=== PATIENT | female | born 1965 ===

== ENCOUNTER 2017-08-18 02:47 | Emergency (ER) | payer SELFPAY ==
[~2017-08-18] VITALS: Ht 162.6 cm; Wt 66.0 kg
[2017-08-18 02:48] VITALS: BP 127/81; PULSE 84; RESP 16; TEMP 97.8; O2SAT 96
[2017-08-18] MEDS ORDERED: ROBA500T PO (03:02)
--- NOTE | 2017-08-18 03:21 | PD ---
HPI Chief Complaint: Pain: Acute or Chronic Time Seen by Provider: 03:05 Travel History International Travel<30 days: No Contact w/Intl Traveler<30days: No Traveled to known affect area: No History of Present Illness HPI Patient is a 52-year-old female that presented to the emergency room evaluation of back pain that has been ongoing for 3 weeks. Patient states that she picked up a heavy purse with her right arm and felt something pop. She went to her primary doctor who prescribed ibuprofen and Robaxin and performed an x-ray. Patient states that the pain is not going away and requested a CAT scan. She denies any shortness of breath, chest pain, fever, chills. She reports the pain feels like it's cramping and aching and states is a 9 out of 10 which is what prompted her to come to the emergency department in the middle of the night. PFSH Past Medical History Medical History: Denies Significant Hx ?: Not LMP: MENOPAUSE Past Surgical History Appendectomy: Yes Other Surgery: Yes (BREAST AUG) Social History Alcohol Use: Yes (RARE) Tobacco Use: No Substance Use: No Allergies-Medications (Allergen,Severity, Reaction): Coded Allergies: No Known Allergies (Unverified , 08/18/17) Reported Meds & Prescriptions Reported Meds & Active Scripts Active Reported Robaxin (Methocarbamol) 500 Mg Tab 500 Mg PO TID Review of Systems Except as stated in HPI: all other systems reviewed are Neg Musculoskeletal: Positive: Myalgias, Cramping, Pain Physical Exam Narrative GENERAL: Well-developed, well-nourished, alert female. Resting comfortably in no acute distress. SKIN: Warm and dry. HEAD: Normocephalic. EYES: No scleral icterus. No injection or drainage. NECK: Supple, trachea midline. No JVD or lymphadenopathy. CARDIOVASCULAR: Regular rate and rhythm without murmurs, gallops, or rubs. RESPIRATORY: Breath sounds equal bilaterally. No accessory muscle use. GASTROINTESTINAL: Abdomen soft, non-tender, nondistended. MUSCULOSKELETAL: No cyanosis, or edema. Tenderness to palpation in the paraspinal musculature in the thoracic region on the left side. BACK: Nontender without obvious deformity. No CVA tenderness. Data Data Last Documented VS Vital Signs Date Time Temp Pulse Resp B/P (MAP) Pulse Ox O2 Delivery O2 Flow Rate FiO2 08/18/17 02:48 97.8 84 16 127/81 (96) 96 Room Air MDM Medical Decision Making Medical Screen Exam Complete: Yes Emergency Medical Condition: No Interpretation(s) Vital Signs Date Time Temp Pulse Resp B/P (MAP) Pulse Ox O2 Delivery O2 Flow Rate FiO2 08/18/17 02:48 97.8 84 16 127/81 (96) 96 Room Air Differential Diagnosis Strain versus spasm versus discogenic pain versus other Narrative Course Patient presented with 3 weeks of right mid back pain. She had been seen and evaluated by her primary doctor. There has been medications prescribed to her and imaging performed on an outpatient basis. At this time patient was encouraged to follow back up with her primary doctor for further evaluation and treatment. She was encouraged to continue previously prescribed medications. Additionally she was encouraged to apply warm heat to the affected area, possible massage therapy. She is advised to return to emergency department for any new or worsening symptoms. A medical screening exam was performed: At the time of evaluation the presenting medical condition was determined not to be of an emergent nature. The patient was given the option of receiving additional care, but declined. Patient was given options for additional community resources from which to obtain care. The Patient Has Been advised to seek medical attention for their presenting complaint. The patient has been advised to return to the ER at any time if an emergent condition develops. Diagnosis Primary Impression: Encounter for medical screening examination Condition: Andie Bronson Aug 18, 2017 03:21
== END 2017-08-18 10:36 | disposition left against medical advice (07) ==
LOC: NEPD 02:47
DX: M54.6 Pain in thoracic spine (principal)
CPT/HCPCS: 99281